=== PATIENT | female | born 1945 | race Caucasian/White ===

== ENCOUNTER 2017-10-30 08:05 | Inpatient (IN) | payer MEDICARE, BC ==
[2017-10-24 11:53] LABS: BASOPHILS % (AUTO) 0.5 % (0-1); EOSINOPHILS # (AUTO) 0.2 X10'3 (0-0.9); EOSINOPHILS % (AUTO) 2.9 % (0-6); LYMPHOCYTES # (AUTO) 2.8 X10'3 (1.1-4.8); LYMPHOCYTES % (AUTO) 38.4 % (21-51); MEAN CORPUSCULAR HGB CONC 31.9 % (33.0-36.5); MEAN CORPUSCULAR VOLUME 87.8 FL (78-98); MEAN PLATELET VOLUME 9.4 FL (7.4-10.4); MONOCYTES # (AUTO) 0.4 X10'3 (0-0.9); MONOCYTES % (AUTO) 5.6 % (2-12); NEUTROPHILS # (AUTO) 3.8 X10'3 (1.8-7.7); NEUTROPHILS % (AUTO) 52.6 % (42-75); PRE OP HEMATOCRIT 34.7 % (35.0-45.0); PRE OP HEMOGLOBIN 11.1 g/dL (12.0-16.0); PRE OP PLATELET COUNT 206 X10'3 (140-440); RED BLOOD COUNT 3.96 X10'6 (4.20-5.60); RED CELL DISTRIBUTION WIDTH 16.4 % (11.5-14.5)
[2017-10-24 11:56] LABS: CLARITY,URINE Clear (Clear); COLOR,URINE Yellow (Yellow); GLUCOSE, URINE Negative (Neg); KETONES,URINE Negative (Neg); LEUKOCYTE ESTERASE ,URINE Moderate (Neg); NITRITES, URINE Negative (Neg); OCCULT BLOOD,URINE Trace (Neg); PROTEIN,URINE Negative (Neg); UROBILINOGEN,URINE 0.2 E.U/dL (0.2-1.0)
[2017-10-24 12:01] LABS: UA COLLECTION TYPE CLN CATCH MIDSTREAM
[2017-10-24 12:03] LABS: PRE OP PROTIME 21.6 SECONDS (9.0-12.0)
[2017-10-24 12:06] LABS: PRE OP INR 2.1 INR
[2017-10-24 12:09] LABS: BACTERIA,URINE 1+ /HPF (Neg); RBC,URINE 0-2 /HPF (0-2); SQUAMOUS EPITHELIAL CELL,UR MODERATE /LPF (FEW); WBC,URINE 0-4 /HPF (0-4)
[2017-10-24 12:18] LABS: ALBUMIN 3.9 G/DL (3.4-5.0); ALBUMIN/GLOBULIN RATIO 0.9 (1.1-1.5); ALKALINE PHOSPHATASE 59 IU/L (46-116); BLOOD UREA NITROGEN 38 MG/DL (7-18); BUN/CREATININE RATIO 22.1 (6.6-38.0); CALCIUM 9.2 MG/DL (8.5-10.1); CHLORIDE 106 MMOL/L (99-107); CREATININE 1.72 MG/DL (0.40-0.90); PRE OP ALT 32 U/L (30-65); PRE OP ANION GAP 9 (8-16); PRE OP AST 25 U/L (10-37); PRE OP BILIRUB, TOTAL 0.4 MG/DL (0.0-1.0); PRE OP GLUCOSE 87 MG/DL (70-104); PRE OP POTASSIUM 4.4 MMOL/L (3.4-5.1); PRE OP SODIUM 143 MMOL/L (135-145); TOTAL PROTEIN 8.1 G/DL (6.4-8.2); eGFR 29 ML/MIN
[2017-10-30] VITALS (17 sets, daily range): BP systolic 128–183; BP diastolic 56–81
[~2017-10-30] VITALS: Ht 162.6 cm; Wt 81.8 kg
[~2017-10-30 08:05] MED LIST: ATOR40TA PO; CALC1TAB PO; COU4T PO; FURO-150 PO; LOSA25TA96 PO; MAGN250T2 PO; POTA20TA19 PO; clindamycin-Cleocin 900mg/D5W 50 ML IV ONE; famotidine 20mg tablet PO ONE; normal saline 500ml IV soln 500 ML IV SCH; ringers solution, lacted 1,000 ML IV SCH
[2017-10-30] MEDS ORDERED: LIDOcaine 1% (10mg/ml) 2ml vial ONE (08:27)
[2017-10-30] MEDS ORDERED: gentamicin inj 275 MG in normal saline 100ml IV soln 93.125 ML IV ONE (08:33)
[2017-10-30 09:11] LABS: INR 1.5 INR; PARTIAL THROMBOPLASTIN TIME 30 SECONDS (22-32)
[2017-10-30] MEDS ORDERED: gentamicin 40 MG/1 ML inj ONE (10:45)
[2017-10-30] MEDS ORDERED: ceFAZolin 1000mg inj ONE (10:45)
[2017-10-30] MEDS ORDERED: clindamycin phosphate 150mg/ml inj. ONE (10:45)
[2017-10-30] MEDS ORDERED: fentaNYL/PF 50MCG/1 ML 2ML syringe ONE (11:50)
[2017-10-30] MEDS ORDERED: midazolam 2 mg/2 ml injection ONE (11:52)
[2017-10-30] MEDS ORDERED: rocuronium 10mg/ml inj IV ONE (11:52)
[2017-10-30] MEDS ORDERED: etomidate 2mg/ml inj. ONE (11:52)
[2017-10-30] MEDS ORDERED: BUPIVAcaine/PF 2.5 mg/ml (0.25%) 30ml vial ONE (13:01)
[2017-10-30] MEDS ORDERED: hydrALAZINE 20mg/ml inj. IV PRN (13:30)
[2017-10-30] MEDS ORDERED: ringers solution, lacted 1,000 ML IV SCH (13:30)
[2017-10-30] MEDS ORDERED: labetalol 20mg/4ml (5mg/ml) syringe IV PRN (13:30)
[2017-10-30] MEDS ORDERED: fentaNYL/PF 50MCG/1 ML 2ML syringe IV PRN ×2 (13:30)
[2017-10-30] MEDS ORDERED: ondansetron/PF 4mg/2ml inj IV PRN ×2 (13:30→14:15)
[2017-10-30] MEDS ORDERED: morphine sulfate 8 MG/ML SYRINGE IV PRN ×2 (13:30)
[2017-10-30] MEDS ORDERED: HYDROmorphone 1 mg/ml syringe IV PRN (14:20)
[2017-10-30] MEDS ORDERED: acetaminophen 1,000mg/100ml IV 100 ML IV ONE (14:25)
[2017-10-30] MEDS: metroNIDAZOLE-Flagyl 500mg/NS 100 ML IV SCH ×2 (16:22→23:43)
[2017-10-30] MEDS: levoFLOXACIN-Levaquin 750MG/D5 150 ML IV SCH (17:29)
[2017-10-30] MEDS: potassium CL 20mEq in D5-1/2NS 1,000 ML IV SCH ×2 (17:30→22:15)
[2017-10-30] MEDS: ketorolac tromethamine 15mg/ml inj. IV SCH (19:28)
[2017-10-30] MEDS: morphine sulfate 8 MG/ML SYRINGE IV PRN ×2 (19:29→23:45)
[2017-10-31] VITALS (23 sets, daily range): BP systolic 87–138; BP diastolic 33–83
[2017-10-31] MEDS: ketorolac tromethamine 15mg/ml inj. IV SCH ×4 (04:43→20:00)
[2017-10-31] MEDS: potassium CL 20mEq in D5-1/2NS 1,000 ML IV SCH ×3 (04:43→22:15)
[2017-10-31] MEDS: morphine sulfate 8 MG/ML SYRINGE IV PRN ×2 (04:44→21:48)
[2017-10-31 05:08] LABS: BASOPHILS % (AUTO) 0.2 % (0-1); EOSINOPHILS % (AUTO) 0 % (0-6); HEMOGLOBIN 7.2 g/dl (12.0-16.0); LYMPHOCYTES # (AUTO) 0.8 X10'3 (1.1-4.8); LYMPHOCYTES % (AUTO) 9.7 % (21-51); MEAN CORPUSCULAR HEMOGLOBIN 28.6 PG (27.0-31.0); MEAN CORPUSCULAR HGB CONC 32.7 % (33.0-36.5); MEAN CORPUSCULAR VOLUME 87.2 FL (78-98); MEAN PLATELET VOLUME 9.6 FL (7.4-10.4); MONOCYTES # (AUTO) 0.4 X10'3 (0-0.9); MONOCYTES % (AUTO) 4.7 % (2-12); NEUTROPHILS # (AUTO) 6.7 X10'3 (1.8-7.7); NEUTROPHILS % (AUTO) 85.4 % (42-75); PLATELET COUNT 210 X10'3 (140-440); RED BLOOD COUNT 2.52 X10'6 (4.20-5.60); RED CELL DISTRIBUTION WIDTH 16.1 % (11.5-14.5); WHITE BLOOD COUNT 7.9 X10'3 (4.5-11.0)
[2017-10-31] MEDS: metroNIDAZOLE-Flagyl 500mg/NS 100 ML IV SCH ×2 (08:18→16:35)
[2017-10-31] MEDS: levoFLOXACIN-Levaquin 750MG/D5 150 ML IV SCH (10:04)
[2017-10-31] MEDS ORDERED: albumin (Human) 5% 250 ML IV solution IV STA ×4 (11:15→19:07)
[2017-10-31] MEDS ORDERED: heparin sodium, porcine/PF 100unit/ml 5ML syringe ONE (16:39)
[2017-10-31 17:01] LABS: ANION GAP 10 (8-16); BLOOD UREA NITROGEN 41 MG/DL (7-18); CALCIUM 7.9 MG/DL (8.5-10.1); CHLORIDE 109 MMOL/L (99-107); CREATININE 1.95 MG/DL (0.40-0.90); GLUCOSE 200 MG/DL (70-104); POTASSIUM 4.5 MMOL/L (3.5-5.1); SODIUM 139 MMOL/L (135-145); TOTAL CARBON DIOXIDE 20.2 MMOL/L (24-32); eGFR 25 ML/MIN
[2017-10-31] MEDS: lactobacillus rhamnosus 10,000 MMU CELLS/CAPSULE PO SCH (17:30)
[2017-10-31 19:47] LABS: MEAN CORPUSCULAR HEMOGLOBIN 27.9 PG (27.0-31.0); MEAN CORPUSCULAR HGB CONC 33.3 % (33.0-36.5); MEAN CORPUSCULAR VOLUME 83.8 FL (78-98); MEAN PLATELET VOLUME 9.5 FL (7.4-10.4); PLATELET COUNT 151 X10'3 (140-440); RED BLOOD COUNT 2.33 X10'6 (4.20-5.60); WHITE BLOOD COUNT 11.8 X10'3 (4.5-11.0)
[2017-10-31 19:53] LABS: HEMATOCRIT 19.5 % (35.0-45.0); HEMOGLOBIN 6.5 g/dl (12.0-16.0)
[2017-10-31 19:58] LABS: INR 2.4 INR; PROTHROMBIN TIME 24.1 SECONDS (9.0-12.0)
[2017-10-31] MEDS ORDERED: LIDOcaine 1%/PF (10mg/ml) 5ml vial ONE (21:02)
[2017-10-31] MEDS ORDERED: iohexol 300mg/ml 100ml inj. ONE (21:02)
[2017-10-31] MEDS ORDERED: heparin 1,000 UNITS/NS 500ml 500 ML ONE (21:10)
[2017-10-31] MEDS ORDERED: normal saline 500ml IV soln 500 ML IV ONE (21:10)
[2017-10-31] MEDS ORDERED: LIDOcaine 1%/PF (10mg/ml) 5ml vial SQ ONE (21:15)
[2017-10-31] MEDS ORDERED: fentaNYL/PF 50MCG/1 ML 2ML syringe IV PRN (21:15)
[2017-10-31] MEDS ORDERED: midazolam 2 mg/2 ml injection IV PRN (21:15)
[2017-10-31] MEDS ORDERED: heparin 1,000 UNITS/NS 500ml 500 ML ICATH ONE (21:15)
[2017-11-01] VITALS (59 sets, daily range): BP systolic 11–174; BP diastolic 40–108
[2017-11-01] MEDS: metroNIDAZOLE-Flagyl 500mg/NS 100 ML IV SCH ×3 (00:55→16:00)
[2017-11-01] MEDS: ketorolac tromethamine 15mg/ml inj. IV SCH ×2 (01:27→08:00)
[2017-11-01 04:33] LABS: INR 1.6 INR; PROTHROMBIN TIME 16.5 SECONDS (9.0-12.0)
[2017-11-01 04:37] LABS: ALANINE AMINOTRANSFERASE 21 U/L (12-78); ALBUMIN 2.7 G/DL (3.4-5.0); ALBUMIN/GLOBULIN RATIO 1.3 (1.1-1.5); ALKALINE PHOSPHATASE 34 IU/L (46-116); ANION GAP 9 (8-16); ASPARTATE AMINO TRANSFERASE 29 U/L (10-37); BLOOD UREA NITROGEN 35 MG/DL (7-18); BUN/CREATININE RATIO 18.7 (6.6-38.0); CALCIUM 7.7 MG/DL (8.5-10.1); CHLORIDE 110 MMOL/L (99-107); CREATININE 1.87 MG/DL (0.40-0.90); GLUCOSE 157 MG/DL (70-104); MAGNESIUM 1.6 MG/DL (1.5-2.4); POTASSIUM 3.9 MMOL/L (3.5-5.1); SODIUM 141 MMOL/L (135-145); TOTAL PROTEIN 4.8 G/DL (6.4-8.2); eGFR 26 ML/MIN
[2017-11-01 05:07] LABS: BASOPHILS % (AUTO) 0.2 % (0-1); EOSINOPHILS # (AUTO) 0.1 X10'3 (0-0.9); EOSINOPHILS % (AUTO) 1.1 % (0-6); LYMPHOCYTES # (AUTO) 2.2 X10'3 (1.1-4.8); LYMPHOCYTES % (AUTO) 19.8 % (21-51); MEAN CORPUSCULAR HEMOGLOBIN 29.1 PG (27.0-31.0); MEAN CORPUSCULAR VOLUME 85.5 FL (78-98); MEAN PLATELET VOLUME 9.8 FL (7.4-10.4); MONOCYTES # (AUTO) 0.7 X10'3 (0-0.9); MONOCYTES % (AUTO) 6.4 % (2-12); NEUTROPHILS % (AUTO) 72.5 % (42-75); PLATELET COUNT 99 X10'3 (140-440); RED CELL DISTRIBUTION WIDTH 16.2 % (11.5-14.5)
[2017-11-01 05:11] LABS: HEMOGLOBIN 6.1 g/dl (12.0-16.0)
[2017-11-01] MEDS: potassium CL 20mEq in D5-1/2NS 1,000 ML IV SCH ×2 (06:15→22:26)
[2017-11-01] MEDS: lactobacillus rhamnosus 10,000 MMU CELLS/CAPSULE PO SCH ×2 (07:30→17:30)
[2017-11-01 08:48] LABS: HEMOGLOBIN 7.3 g/dl (12.0-16.0); MEAN CORPUSCULAR HEMOGLOBIN 29.2 PG (27.0-31.0); MEAN CORPUSCULAR HGB CONC 33.4 % (33.0-36.5); MEAN CORPUSCULAR VOLUME 87.2 FL (78-98); MEAN PLATELET VOLUME 10.3 FL (7.4-10.4); PLATELET COUNT 87 X10'3 (140-440); RED BLOOD COUNT 2.49 X10'6 (4.20-5.60); RED CELL DISTRIBUTION WIDTH 15.3 % (11.5-14.5); WHITE BLOOD COUNT 9.8 X10'3 (4.5-11.0)
[2017-11-01 09:04] LABS: HEMATOCRIT 21.7 % (35.0-45.0)
[2017-11-01] MEDS ORDERED: CALCIUM GLUCONATE 1 GM in NORMAL SALINE 100ml IV.SOLN IV ONE (11:30)
[2017-11-01] MEDS ORDERED: vasopressin inj. 60 UNIT in normal saline 100ml IV soln 97 ML IV SCH (11:50)
[2017-11-01] MEDS: levoFLOXACIN-Levaquin 750MG/D5 150 ML IV SCH (11:58)
[2017-11-01] MEDS ORDERED: furosemide 20 MG/2 ML vial IV ONE (13:15)
[2017-11-01 13:34] LABS: MEAN CORPUSCULAR HEMOGLOBIN 29.8 PG (27.0-31.0); MEAN CORPUSCULAR VOLUME 87.5 FL (78-98); MEAN PLATELET VOLUME 9.9 FL (7.4-10.4); PLATELET COUNT 69 X10'3 (140-440); RED BLOOD COUNT 1.89 X10'6 (4.20-5.60); RED CELL DISTRIBUTION WIDTH 15.5 % (11.5-14.5); WHITE BLOOD COUNT 7.7 X10'3 (4.5-11.0)
[2017-11-01 13:46] LABS: HEMATOCRIT 16.6 % (35.0-45.0); HEMOGLOBIN 5.6 g/dl (12.0-16.0)
[2017-11-01] MEDS ORDERED: normal saline 1000ml 1,000 ML IV SCH (14:15)
[2017-11-01] MEDS ORDERED: fentaNYL/PF 50MCG/1 ML 2ML syringe IV PRN ×2 (14:15→14:30)
[2017-11-01] MEDS ORDERED: midazolam 2 mg/2 ml injection IV PRN ×2 (14:15→14:30)
[2017-11-01] MEDS ORDERED: iohexol 300mg/ml 100ml inj. ONE (14:24)
[2017-11-01] MEDS ORDERED: LIDOcaine 1%/PF (10mg/ml) 5ml vial ONE (14:24)
[2017-11-01] MEDS ORDERED: LIDOcaine 1%/PF (10mg/ml) 5ml vial SQ ONE (14:30)
[2017-11-01] MEDS ORDERED: fentaNYL/PF 50MCG/1 ML 2ML syringe ONE ×2 (15:09→17:30)
[2017-11-01] MEDS ORDERED: midazolam 2 mg/2 ml injection ONE ×2 (15:09→17:30)
[2017-11-01] MEDS ORDERED: glucagon, human recombinant 1mg kit ONE (15:33)
[2017-11-01] MEDS ORDERED: glucagon, human recombinant 1mg kit IV ONE (15:35)
[2017-11-01] MEDS ORDERED: gentamicin 40 MG/1 ML inj ONE (17:13)
[2017-11-01] MEDS ORDERED: clindamycin phosphate 150mg/ml inj. ONE (17:14)
[2017-11-01 17:46] LABS: HEMATOCRIT 23.3 % (35.0-45.0); HEMOGLOBIN 7.9 g/dl (12.0-16.0); MEAN CORPUSCULAR HEMOGLOBIN 29.6 PG (27.0-31.0); MEAN CORPUSCULAR HGB CONC 33.6 % (33.0-36.5); PLATELET COUNT 63 X10'3 (140-440); RED BLOOD COUNT 2.65 X10'6 (4.20-5.60); RED CELL DISTRIBUTION WIDTH 15.2 % (11.5-14.5); WHITE BLOOD COUNT 12.5 X10'3 (4.5-11.0)
[2017-11-01 17:55] LABS: ANION GAP 6 (8-16); BLOOD UREA NITROGEN 29 MG/DL (7-18); BUN/CREATININE RATIO 20.7 (6.6-38.0); CALCIUM 6.9 MG/DL (8.5-10.1); CHLORIDE 115 MMOL/L (99-107); GLUCOSE 157 MG/DL (70-104); POTASSIUM 3.6 MMOL/L (3.5-5.1); SODIUM 142 MMOL/L (135-145); eGFR 37 ML/MIN
[2017-11-01] MEDS: NORepinephrine 8 MG in normal saline 250ml IV soln IV SCH (18:05)
[2017-11-01 18:10] LABS: INR 1.7 INR; PROTHROMBIN TIME 17.6 SECONDS (9.0-12.0)
[2017-11-01 19:51] LABS: ISTAT CREATININE 1.1 mg/dL (0.6-1.1); ISTAT HGB 7.8 g/dl (12.0-16.0); ISTAT IONIZED CALCIUM 1.05 mmol/L (1.03-1.32); ISTAT K 3.8 mmol/L (3.5-5.1); POC BUN/CREATININE RATIO 21.8 (6.6-38.0)
[2017-11-01 20:10] LABS: ABG BASE EXCESS -8.4 mmol/L (-2.0-3.0); ABG HCO3 16.3 mmol/L (22.0-26.0); ABG OXYGEN SATURATION 98.9 % (95-98); ABG PCO2 (T) 28.9 mmHg (32.0-45.0); ABG PH (T) 7.361 (7.350-7.450); ABG PO2 (T) 464.4 mmHg (83-108); FCOHb 0.3 % (0.5-1.5); FMetHb 0.2 % (0.3-1.12); FO2Hb 98.4 % (94-100); PATIENT TEMPERATURE 35.5; TOTAL HEMOGLOBIN 10.8 G/dl (12.0-16.0)
[2017-11-01] MEDS ORDERED: sodium bicarbonate 1 MEQ/1 ml inj ONE ×2 (20:10)
[2017-11-01] MEDS ORDERED: FENTANYL-0.9 % NACL/PF 100 ML IV PRN (20:35)
[2017-11-01] MEDS ORDERED: midazolam 100mg in NS 100ml 100 ML IV PRN (20:35)
[2017-11-01] MEDS ORDERED: MIDAZolam 5mg/5ml vial ONE (20:38)
[2017-11-01] MEDS ORDERED: rocuronium 10mg/ml inj IV ONE (20:38)
[2017-11-01] MEDS: atorvastatin 20mg tablet PO SCH (20:51)
[2017-11-01 22:06] LABS: ABG BASE EXCESS -5.8 mmol/L (-2.0-3.0); ABG OXYGEN SATURATION 98.8 % (95-98); ABG PH (T) 7.362 (7.350-7.450); ABG PO2 (T) 223.2 mmHg (83-108); FCOHb 0.2 % (0.5-1.5); FMetHb 0.2 % (0.3-1.12); FO2Hb 98.4 % (94-100); MINUTE VOLUME 7 L/min; PATIENT TEMPERATURE 36.3; PEEP 5 cm H2O; RESPIRATORY RATE 12 b/min; RESPIRATORY RATE (OBSERVED) 12 b/min; TIDAL VOLUME 550 mL; TOTAL HEMOGLOBIN 12.4 G/dl (12.0-16.0)
[2017-11-01] MEDS ORDERED: glucagon, human recombinant 1mg kit SUBCUT PRN (22:10)
[2017-11-01] MEDS ORDERED: dextrose ORAL solution 15 GM/59 ML bottle PO PRN ×2 (22:10)
[2017-11-01] MEDS ORDERED: dextrose 50%-water 50ml dispensing syringe IV PRN ×2 (22:10)
[2017-11-01 22:18] LABS: BASOPHILS % (AUTO) 0 % (0-1); EOSINOPHILS % (AUTO) 0.1 % (0-6); HEMOGLOBIN 11.4 g/dl (12.0-16.0); LYMPHOCYTES # (AUTO) 0.6 X10'3 (1.1-4.8); LYMPHOCYTES % (AUTO) 6.5 % (21-51); MEAN CORPUSCULAR HEMOGLOBIN 29.7 PG (27.0-31.0); MEAN CORPUSCULAR HGB CONC 33.5 % (33.0-36.5); MEAN CORPUSCULAR VOLUME 88.7 FL (78-98); MEAN PLATELET VOLUME 9.9 FL (7.4-10.4); MONOCYTES # (AUTO) 0.3 X10'3 (0-0.9); MONOCYTES % (AUTO) 3.1 % (2-12); NEUTROPHILS # (AUTO) 8.8 X10'3 (1.8-7.7); NEUTROPHILS % (AUTO) 90.3 % (42-75); RED BLOOD COUNT 3.83 X10'6 (4.20-5.60); RED CELL DISTRIBUTION WIDTH 13.9 % (11.5-14.5); WHITE BLOOD COUNT 9.7 X10'3 (4.5-11.0)
[2017-11-01 22:26] LABS: PLATELET COUNT 41 X10'3 (140-440)
[2017-11-01 22:29] LABS: INR 1.4 INR; PARTIAL THROMBOPLASTIN TIME 33 SECONDS (22-32); PROTHROMBIN TIME 14.5 SECONDS (9.0-12.0)
[2017-11-01 22:31] LABS: ALANINE AMINOTRANSFERASE 20 U/L (12-78); ALBUMIN 2.1 G/DL (3.4-5.0); ALKALINE PHOSPHATASE 38 IU/L (46-116); ANION GAP 10 (8-16); ASPARTATE AMINO TRANSFERASE 30 U/L (10-37); BILIRUBIN,TOTAL 1.5 MG/DL (0.1-1.0); BLOOD UREA NITROGEN 26 MG/DL (7-18); BUN/CREATININE RATIO 19.7 (6.6-38.0); CALCIUM 6.7 MG/DL (8.5-10.1); CHLORIDE 113 MMOL/L (99-107); CREATININE 1.32 MG/DL (0.40-0.90); GLUCOSE 251 MG/DL (70-104); MAGNESIUM 1.2 MG/DL (1.5-2.4); PHOSPHORUS 3.3 MG/DL (2.3-4.5); POTASSIUM 3.5 MMOL/L (3.5-5.1); SODIUM 144 MMOL/L (135-145); TOTAL PROTEIN 4.2 G/DL (6.4-8.2); eGFR 40 ML/MIN
[2017-11-01] MEDS: insulin Lispro (HumaLOG) vial - multi-dose SQ SCH (23:06)
[2017-11-01] MEDS ORDERED: magnesium 4gm in 100ml NS 100 ML IV PRN (23:20)
[2017-11-01] MEDS ORDERED: magnesium 2GM in 50ml NS 50 ML IV PRN (23:20)
[2017-11-01] MEDS ORDERED: potassium Cl 40MEQ/250ML bag 250 ML IV PRN ×2 (23:20)
[2017-11-01] MEDS ORDERED: potassium Cl 40MEQ/250ML bag 250 ML IV ONE (23:23)
[2017-11-02] VITALS (28 sets, daily range): BP systolic 111–155; BP diastolic 46–71
[2017-11-02] MEDS: potassium CL 20mEq in D5-1/2NS 1,000 ML IV SCH (00:52)
[2017-11-02] MEDS: metroNIDAZOLE-Flagyl 500mg/NS 100 ML IV SCH ×3 (01:06→16:37)
[2017-11-02] MEDS: insulin Lispro (HumaLOG) vial - multi-dose SQ SCH (03:07)
[2017-11-02 03:45] LABS: BASOPHILS % (AUTO) 0 % (0-1); EOSINOPHILS % (AUTO) 0 % (0-6); HEMATOCRIT 32.5 % (35.0-45.0); HEMOGLOBIN 11.4 g/dl (12.0-16.0); LYMPHOCYTES # (AUTO) 0.5 X10'3 (1.1-4.8); LYMPHOCYTES % (AUTO) 4.6 % (21-51); MEAN CORPUSCULAR HEMOGLOBIN 30.4 PG (27.0-31.0); MEAN CORPUSCULAR HGB CONC 35.1 % (33.0-36.5); MEAN CORPUSCULAR VOLUME 86.6 FL (78-98); MEAN PLATELET VOLUME 9.6 FL (7.4-10.4); MONOCYTES # (AUTO) 0.2 X10'3 (0-0.9); MONOCYTES % (AUTO) 2.3 % (2-12); NEUTROPHILS # (AUTO) 9.3 X10'3 (1.8-7.7); NEUTROPHILS % (AUTO) 93.1 % (42-75); PLATELET COUNT 69 X10'3 (140-440); RED BLOOD COUNT 3.76 X10'6 (4.20-5.60); RED CELL DISTRIBUTION WIDTH 13.2 % (11.5-14.5)
[2017-11-02 03:48] LABS: INR 1.3 INR; PROTHROMBIN TIME 13.6 SECONDS (9.0-12.0)
[2017-11-02 04:06] LABS: ALANINE AMINOTRANSFERASE 23 U/L (12-78); ALBUMIN 2.3 G/DL (3.4-5.0); ALKALINE PHOSPHATASE 39 IU/L (46-116); ANION GAP 6 (8-16); ASPARTATE AMINO TRANSFERASE 31 U/L (10-37); BILIRUBIN,TOTAL 1.3 MG/DL (0.1-1.0); BLOOD UREA NITROGEN 27 MG/DL (7-18); BUN/CREATININE RATIO 18.1 (6.6-38.0); CALCIUM 7.3 MG/DL (8.5-10.1); CHLORIDE 113 MMOL/L (99-107); CREATININE 1.49 MG/DL (0.40-0.90); GLUCOSE 231 MG/DL (70-104); PHOSPHORUS 2.8 MG/DL (2.3-4.5); POTASSIUM 3.6 MMOL/L (3.5-5.1); SODIUM 143 MMOL/L (135-145); TOTAL CARBON DIOXIDE 24.3 MMOL/L (24-32); TOTAL PROTEIN 4.6 G/DL (6.4-8.2); eGFR 34 ML/MIN
[2017-11-02 04:31] LABS: ABG HCO3 18.4 mmol/L (22.0-26.0); ABG OXYGEN SATURATION 97.8 % (95-98); ABG PCO2 (T) 29.1 mmHg (32.0-45.0); ABG PH (T) 7.419 (7.350-7.450); ABG PO2 (T) 117.2 mmHg (83-108); FCOHb 0.2 % (0.5-1.5); FMetHb 0.1 % (0.3-1.12); FO2Hb 97.5 % (94-100); MINUTE VOLUME 7 L/min; PEEP 5 cm H2O; RESPIRATORY RATE 12 b/min; RESPIRATORY RATE (OBSERVED) 12 b/min; TIDAL VOLUME 550 mL; TOTAL HEMOGLOBIN 11.7 G/dl (12.0-16.0)
[2017-11-02] MEDS: lactobacillus rhamnosus 10,000 MMU CELLS/CAPSULE PO SCH ×2 (07:30→17:30)
[2017-11-02] MEDS: calcium carbonate/vitamin D3 tablet PO SCH (08:00)
[2017-11-02] MEDS: levoFLOXACIN-Levaquin 750MG/D5 150 ML IV SCH (08:57)
[2017-11-02 09:25] LABS: BASOPHILS % (AUTO) 0.4 % (0-1); EOSINOPHILS % (AUTO) 0 % (0-6); HEMATOCRIT 31.4 % (35.0-45.0); HEMOGLOBIN 11.1 g/dl (12.0-16.0); LYMPHOCYTES # (AUTO) 0.7 X10'3 (1.1-4.8); MEAN CORPUSCULAR HEMOGLOBIN 30.3 PG (27.0-31.0); MEAN CORPUSCULAR HGB CONC 35.4 % (33.0-36.5); MEAN CORPUSCULAR VOLUME 85.5 FL (78-98); MEAN PLATELET VOLUME 9.2 FL (7.4-10.4); MONOCYTES # (AUTO) 0.4 X10'3 (0-0.9); MONOCYTES % (AUTO) 4.6 % (2-12); NEUTROPHILS # (AUTO) 8.5 X10'3 (1.8-7.7); PLATELET COUNT 80 X10'3 (140-440); RED BLOOD COUNT 3.68 X10'6 (4.20-5.60); RED CELL DISTRIBUTION WIDTH 13.3 % (11.5-14.5); WHITE BLOOD COUNT 9.6 X10'3 (4.5-11.0)
[2017-11-02 09:36] LABS: INR 1.4 INR; PARTIAL THROMBOPLASTIN TIME 29 SECONDS (22-32)
[2017-11-02 15:19] LABS: HEMATOCRIT 31.6 % (35.0-45.0); HEMOGLOBIN 11.3 g/dl (12.0-16.0); MEAN CORPUSCULAR HEMOGLOBIN 30.9 PG (27.0-31.0); MEAN CORPUSCULAR HGB CONC 35.7 % (33.0-36.5); MEAN CORPUSCULAR VOLUME 86.7 FL (78-98); MEAN PLATELET VOLUME 9.3 FL (7.4-10.4); PLATELET COUNT 81 X10'3 (140-440); RED BLOOD COUNT 3.65 X10'6 (4.20-5.60); RED CELL DISTRIBUTION WIDTH 13.8 % (11.5-14.5); WHITE BLOOD COUNT 11.6 X10'3 (4.5-11.0)
[2017-11-02] MEDS: potassium cl 20mEq in 1/2 NS 1,000 ML IV SCH (16:34)
[2017-11-02] MEDS: insulin glargine (Lantus) pen - multi-dose SQ SCH (20:54)
[2017-11-02] MEDS: atorvastatin 20mg tablet PO SCH (20:54)
[2017-11-03] VITALS (25 sets, daily range): BP systolic 106–153; BP diastolic 40–93
[2017-11-03] MEDS: metroNIDAZOLE-Flagyl 500mg/NS 100 ML IV SCH ×4 (00:59→23:48)
[2017-11-03 02:32] LABS: BASOPHILS % (AUTO) 0.2 % (0-1); EOSINOPHILS % (AUTO) 0.1 % (0-6); HEMATOCRIT 28.3 % (35.0-45.0); HEMOGLOBIN 9.7 g/dl (12.0-16.0); LYMPHOCYTES # (AUTO) 1.5 X10'3 (1.1-4.8); LYMPHOCYTES % (AUTO) 13.8 % (21-51); MEAN CORPUSCULAR HEMOGLOBIN 30.1 PG (27.0-31.0); MEAN CORPUSCULAR HGB CONC 34.3 % (33.0-36.5); MEAN CORPUSCULAR VOLUME 87.8 FL (78-98); MEAN PLATELET VOLUME 10.2 FL (7.4-10.4); MONOCYTES # (AUTO) 0.7 X10'3 (0-0.9); MONOCYTES % (AUTO) 6.4 % (2-12); NEUTROPHILS # (AUTO) 8.6 X10'3 (1.8-7.7); NEUTROPHILS % (AUTO) 79.5 % (42-75); PLATELET COUNT 90 X10'3 (140-440); RED BLOOD COUNT 3.23 X10'6 (4.20-5.60); WHITE BLOOD COUNT 10.8 X10'3 (4.5-11.0)
[2017-11-03 02:39] LABS: INR 1.5 INR; PROTHROMBIN TIME 15.2 SECONDS (9.0-12.0)
[2017-11-03 02:44] LABS: ALANINE AMINOTRANSFERASE 23 U/L (12-78); ALBUMIN 2.2 G/DL (3.4-5.0); ALKALINE PHOSPHATASE 36 IU/L (46-116); ANION GAP 4 (8-16); ASPARTATE AMINO TRANSFERASE 26 U/L (10-37); BILIRUBIN,TOTAL 0.6 MG/DL (0.1-1.0); BLOOD UREA NITROGEN 32 MG/DL (7-18); BUN/CREATININE RATIO 19.9 (6.6-38.0); CALCIUM 7.5 MG/DL (8.5-10.1); CHLORIDE 115 MMOL/L (99-107); CREATININE 1.61 MG/DL (0.40-0.90); GLUCOSE 138 MG/DL (70-104); MAGNESIUM 1.8 MG/DL (1.5-2.4); POTASSIUM 3.7 MMOL/L (3.5-5.1); SODIUM 145 MMOL/L (135-145); TOTAL CARBON DIOXIDE 26.4 MMOL/L (24-32); TOTAL PROTEIN 4.4 G/DL (6.4-8.2); eGFR 31 ML/MIN
[2017-11-03] MEDS: calcium carbonate/vitamin D3 tablet PO SCH (08:34)
[2017-11-03] MEDS: lactobacillus rhamnosus 10,000 MMU CELLS/CAPSULE PO SCH ×2 (08:34→17:23)
[2017-11-03] MEDS: potassium cl 20mEq in 1/2 NS 1,000 ML IV SCH (08:37)
[2017-11-03] MEDS: levoFLOXACIN-Levaquin 750MG/D5 150 ML IV SCH (08:37)
[2017-11-03 08:47] LABS: HEMATOCRIT 28.2 % (35.0-45.0); HEMOGLOBIN 9.5 g/dl (12.0-16.0); MEAN CORPUSCULAR HGB CONC 33.7 % (33.0-36.5); MEAN CORPUSCULAR VOLUME 88.8 FL (78-98); PLATELET COUNT 92 X10'3 (140-440); RED BLOOD COUNT 3.17 X10'6 (4.20-5.60)
[2017-11-03] MEDS: morphine sulfate 8 MG/ML SYRINGE IV PRN (13:31)
[2017-11-03 14:10] LABS: HEMATOCRIT 27.6 % (35.0-45.0); HEMOGLOBIN 9.3 g/dl (12.0-16.0); MEAN CORPUSCULAR HEMOGLOBIN 30.1 PG (27.0-31.0); MEAN CORPUSCULAR HGB CONC 33.7 % (33.0-36.5); MEAN CORPUSCULAR VOLUME 89.4 FL (78-98); MEAN PLATELET VOLUME 9.8 FL (7.4-10.4); PLATELET COUNT 89 X10'3 (140-440); RED BLOOD COUNT 3.08 X10'6 (4.20-5.60); RED CELL DISTRIBUTION WIDTH 15.1 % (11.5-14.5); WHITE BLOOD COUNT 10.7 X10'3 (4.5-11.0)
[2017-11-03] MEDS: HYDROcodone/acetaminophen 10/325mg tab PO PRN ×2 (15:26→20:30)
[2017-11-03] MEDS: NORepinephrine 8 MG in normal saline 250ml IV soln IV SCH (17:55)
[2017-11-03] MEDS: atorvastatin 20mg tablet PO SCH (20:31)
[2017-11-03] MEDS: insulin glargine (Lantus) pen - multi-dose SQ SCH (21:00)
[2017-11-04] VITALS (13 sets, daily range): BP systolic 126–164; BP diastolic 56–81
[2017-11-04 07:45] LABS: BASOPHILS # (AUTO) 0.1 X10'3 (0-0.2); BASOPHILS % (AUTO) 0.6 % (0-1); EOSINOPHILS # (AUTO) 0.3 X10'3 (0-0.9); EOSINOPHILS % (AUTO) 3.4 % (0-6); HEMATOCRIT 27.9 % (35.0-45.0); HEMOGLOBIN 9.4 g/dl (12.0-16.0); LYMPHOCYTES # (AUTO) 1.6 X10'3 (1.1-4.8); LYMPHOCYTES % (AUTO) 17.1 % (21-51); MEAN CORPUSCULAR HEMOGLOBIN 30.2 PG (27.0-31.0); MEAN CORPUSCULAR HGB CONC 33.8 % (33.0-36.5); MEAN CORPUSCULAR VOLUME 89.3 FL (78-98); MEAN PLATELET VOLUME 9.7 FL (7.4-10.4); MONOCYTES # (AUTO) 0.6 X10'3 (0-0.9); MONOCYTES % (AUTO) 6.7 % (2-12); NEUTROPHILS # (AUTO) 6.8 X10'3 (1.8-7.7); NEUTROPHILS % (AUTO) 72.2 % (42-75); PLATELET COUNT 92 X10'3 (140-440); RED BLOOD COUNT 3.13 X10'6 (4.20-5.60); RED CELL DISTRIBUTION WIDTH 14.8 % (11.5-14.5); WHITE BLOOD COUNT 9.4 X10'3 (4.5-11.0)
[2017-11-04 07:58] LABS: INR 1.2 INR; PROTHROMBIN TIME 12.8 SECONDS (9.0-12.0)
[2017-11-04] MEDS: metroNIDAZOLE-Flagyl 500mg/NS 100 ML IV SCH ×3 (08:14→23:52)
[2017-11-04] MEDS: magnesium hydroxide 30ml (MOM) UD suspension PO SCH ×2 (08:14→20:17)
[2017-11-04] MEDS: calcium carbonate/vitamin D3 tablet PO SCH (08:14)
[2017-11-04] MEDS: lactobacillus rhamnosus 10,000 MMU CELLS/CAPSULE PO SCH ×2 (08:14→16:48)
[2017-11-04 08:33] LABS: ALANINE AMINOTRANSFERASE 22 U/L (12-78); ALBUMIN 2.3 G/DL (3.4-5.0); ALBUMIN/GLOBULIN RATIO 0.9 (1.1-1.5); ALKALINE PHOSPHATASE 38 IU/L (46-116); ANION GAP 7 (8-16); ASPARTATE AMINO TRANSFERASE 22 U/L (10-37); BILIRUBIN,TOTAL 0.7 MG/DL (0.1-1.0); BLOOD UREA NITROGEN 26 MG/DL (7-18); BUN/CREATININE RATIO 18.6 (6.6-38.0); CALCIUM 7.9 MG/DL (8.5-10.1); CHLORIDE 110 MMOL/L (99-107); GLUCOSE 100 MG/DL (70-104); MAGNESIUM 1.7 MG/DL (1.5-2.4); PHOSPHORUS 2.2 MG/DL (2.3-4.5); POTASSIUM 3.7 MMOL/L (3.5-5.1); SODIUM 141 MMOL/L (135-145); TOTAL CARBON DIOXIDE 24.1 MMOL/L (24-32); TOTAL PROTEIN 4.9 G/DL (6.4-8.2); eGFR 37 ML/MIN
[2017-11-04] MEDS: levoFLOXACIN-Levaquin 750MG/D5 150 ML IV SCH (09:08)
[2017-11-04] MEDS: atorvastatin 20mg tablet PO SCH (20:58)
[2017-11-04] MEDS: insulin glargine (Lantus) pen - multi-dose SQ SCH (20:58)
[2017-11-05] VITALS: BP 131/62
[2017-11-05 08:00] VITALS: BP 119/60
[2017-11-05] MEDS: magnesium hydroxide 30ml (MOM) UD suspension PO SCH ×2 (08:01→16:06)
[2017-11-05] MEDS: lactobacillus rhamnosus 10,000 MMU CELLS/CAPSULE PO SCH ×2 (08:01→17:46)
[2017-11-05] MEDS: metroNIDAZOLE-Flagyl 500mg/NS 100 ML IV SCH ×2 (08:01→16:08)
[2017-11-05] MEDS: calcium carbonate/vitamin D3 tablet PO SCH (08:01)
[2017-11-05] MEDS: levoFLOXACIN-Levaquin 750MG/D5 150 ML IV SCH (10:08)
[2017-11-05 11:00] VITALS: BP 190/81
[2017-11-05 13:09] VITALS: BP 125/65
[2017-11-05] MEDS ORDERED: acetaminophen 325mg tablet PO PRN (17:35)
[2017-11-05 20:05] VITALS: BP 128/73
[2017-11-05] MEDS: insulin glargine (Lantus) pen - multi-dose SQ SCH (21:00)
[2017-11-05] MEDS: atorvastatin 20mg tablet PO SCH (21:30)
[2017-11-06 00:05] VITALS: BP 127/56
[2017-11-06] MEDS: metroNIDAZOLE 500mg tablet PO SCH ×3 (00:06→16:43)
[2017-11-06 07:00] VITALS: BP 141/84
[2017-11-06] MEDS: lactobacillus rhamnosus 10,000 MMU CELLS/CAPSULE PO SCH ×2 (07:30→16:43)
[2017-11-06 07:43] LABS: BASOPHILS % (AUTO) 0.3 % (0-1); EOSINOPHILS # (AUTO) 0.3 X10'3 (0-0.9); EOSINOPHILS % (AUTO) 3.7 % (0-6); HEMATOCRIT 29.5 % (35.0-45.0); HEMOGLOBIN 9.8 g/dl (12.0-16.0); LYMPHOCYTES # (AUTO) 1.7 X10'3 (1.1-4.8); LYMPHOCYTES % (AUTO) 19.9 % (21-51); MEAN CORPUSCULAR HEMOGLOBIN 29.7 PG (27.0-31.0); MEAN CORPUSCULAR HGB CONC 33.2 % (33.0-36.5); MEAN CORPUSCULAR VOLUME 89.4 FL (78-98); MEAN PLATELET VOLUME 10.2 FL (7.4-10.4); MONOCYTES # (AUTO) 0.7 X10'3 (0-0.9); MONOCYTES % (AUTO) 8.1 % (2-12); NEUTROPHILS # (AUTO) 5.9 X10'3 (1.8-7.7); PLATELET COUNT 145 X10'3 (140-440); RED CELL DISTRIBUTION WIDTH 14.9 % (11.5-14.5); WHITE BLOOD COUNT 8.7 X10'3 (4.5-11.0)
[2017-11-06] MEDS: magnesium hydroxide 30ml (MOM) UD suspension PO SCH ×3 (08:00→18:10)
[2017-11-06] MEDS: methylnaltrexone br 12mg/0.6ml inj***SubQ only SQ SCH (09:11)
[2017-11-06] MEDS: calcium carbonate/vitamin D3 tablet PO SCH (09:11)
[2017-11-06 11:00] VITALS: BP 112/66
[2017-11-06] MEDS: levoFLOXACIN 750MG TABLET PO SCH (11:00)
[2017-11-06] MEDS ORDERED: furosemide 20MG tablet PO ONE (14:55)
[2017-11-06 20:00] VITALS: BP 138/73
[2017-11-06] MEDS: potassium Cl 20 mEq SR tablet PO SCH ×2 (21:00→21:37)
[2017-11-06] MEDS: insulin glargine (Lantus) pen - multi-dose SQ SCH (21:00)
[2017-11-06] MEDS: atorvastatin 20mg tablet PO SCH (21:38)
[2017-11-07] VITALS: BP 120/68
[2017-11-07] MEDS: metroNIDAZOLE 500mg tablet PO SCH ×3 (00:02→16:13)
[2017-11-07 06:50] VITALS: BP 131/93
[2017-11-07] MEDS: lactobacillus rhamnosus 10,000 MMU CELLS/CAPSULE PO SCH ×2 (08:15→17:30)
[2017-11-07] MEDS: calcium carbonate/vitamin D3 tablet PO SCH (08:15)
[2017-11-07] MEDS: furosemide 20MG tablet PO SCH (08:17)
[2017-11-07] MEDS: levoFLOXACIN 750MG TABLET PO SCH (11:19)
[2017-11-07 11:20] VITALS: BP 143/62
[2017-11-07 20:00] VITALS: BP 135/66
[2017-11-07] MEDS: potassium Cl 20 mEq SR tablet PO SCH (20:49)
[2017-11-07] MEDS: atorvastatin 20mg tablet PO SCH (20:49)
[2017-11-07] MEDS: magnesium hydroxide 30ml (MOM) UD suspension PO SCH (20:49)
[2017-11-07] MEDS: insulin glargine (Lantus) pen - multi-dose SQ SCH (21:00)
[2017-11-07] MEDS ORDERED: LACT1CAP26 PO (21:53)
[2017-11-08] VITALS: BP 133/65
[2017-11-08] MEDS: metroNIDAZOLE 500mg tablet PO SCH ×2 (00:50→08:49)
[2017-11-08 06:50] VITALS: BP 130/69
[2017-11-08] MEDS: methylnaltrexone br 12mg/0.6ml inj***SubQ only SQ SCH (08:00)
[2017-11-08] MEDS: lactobacillus rhamnosus 10,000 MMU CELLS/CAPSULE PO SCH (08:49)
[2017-11-08] MEDS: furosemide 20MG tablet PO SCH (08:49)
[2017-11-08] MEDS: calcium carbonate/vitamin D3 tablet PO SCH (08:49)
[2017-11-08] MEDS: magnesium hydroxide 30ml (MOM) UD suspension PO SCH (08:49)
[2017-11-08 11:05] VITALS: BP 124/55
== END 2017-11-08 13:05 | disposition home health service (06) | DRG 330 ==
LOC: PAS IN 08:05 → EDSTATUS 10:15 → SUR 3N 15:19 → CICU 2S 10-31 20:35 → SUR 3N 11-04 12:45
PROVIDERS: ADMIT Surgery; ATTEND Internal Medicine Critical Care Medicine
PROC: 03HY32Z Insertion of Monitoring Device into Upper Artery, Percutaneous Approach (ICD-10-PCS; 2017-10-30)
PROC: 02HV33Z Insertion of Infusion Device into Superior Vena Cava, Percutaneous Approach (ICD-10-PCS; 2017-10-30)
PROC: 0DBF0ZZ Excision of Right Large Intestine, Open Approach (ICD-10-PCS; principal; 2017-10-30 12:00)
PROC: 30233N1 Transfusion of Nonautologous Red Blood Cells into Peripheral Vein, Percutaneous Approach (ICD-10-PCS; 2017-10-31)
PROC: CD271ZZ Tomographic (Tomo) Nuclear Medicine Imaging of Gastrointestinal Tract using Technetium 99m (Tc-99m) (ICD-10-PCS; 2017-10-31)
PROC: 0D1 Gastrointestinal System, Bypass (ICD-10-PCS; 2017-11-01)
PROC: 0DB80ZZ Excision of Small Intestine, Open Approach (ICD-10-PCS; 2017-11-01)
PROC: 30233L1 Transfusion of Nonautologous Fresh Plasma into Peripheral Vein, Percutaneous Approach (ICD-10-PCS; 2017-11-01)
PROC: 30233K1 Transfusion of Nonautologous Frozen Plasma into Peripheral Vein, Percutaneous Approach (ICD-10-PCS; 2017-11-01)
PROC: 30233M1 Transfusion of Nonautologous Plasma Cryoprecipitate into Peripheral Vein, Percutaneous Approach (ICD-10-PCS; 2017-11-01)
PROC: 30233R1 Transfusion of Nonautologous Platelets into Peripheral Vein, Percutaneous Approach (ICD-10-PCS; 2017-11-01)
PROC: B41B1ZZ Fluoroscopy of Other Intra-Abdominal Arteries using Low Osmolar Contrast (ICD-10-PCS; 2017-11-01)
PROC: B4141ZZ Fluoroscopy of Superior Mesenteric Artery using Low Osmolar Contrast (ICD-10-PCS; 2017-11-01)
DX: K63.89 Other specified diseases of intestine (principal); K55.9 Vascular disorder of intestine, unspecified; N18.4 Chronic kidney disease, stage 4 (severe); I48.91 Unspecified atrial fibrillation; D68.9 Coagulation defect, unspecified; N17.9 Acute kidney failure, unspecified; J44.9 Chronic obstructive pulmonary disease, unspecified; R71.0 Precipitous drop in hematocrit; K56.7 Ileus, unspecified; R58 Hemorrhage, not elsewhere classified; I25.10 Atherosclerotic heart disease of native coronary artery without angina pectoris; I12.9 Hypertensive chronic kidney disease with stage 1 through stage 4 chronic kidney disease, or unspecified chronic kidney disease; Z88.0 Allergy status to penicillin; Z88.1 Allergy status to other antibiotic agents; Q43.0 Meckel's diverticulum (displaced) (hypertrophic); Z88.8 Allergy status to other drugs, medicaments and biological substances; Z79.899 Other long term (current) drug therapy; Z95.1 Presence of aortocoronary bypass graft
CPT/HCPCS: 36218; 36245; 36415; 36600; 71010; 71020; 75726; 78278; 80047; 80048; 80053; 81001; 82803; 82948; 83735; 84100; 85018; 85025; 85027; 85384; 85610; 85730; 86885; 86900; 86901; 86920; 87070; 87088; 88309; 93005; 94002; 94003; 94668; 94760; 97116; 97162; 97530; 99152; 99153; A4315; A4620; A6213; A6251; A6255; A6257; A6258; A6449; A7000; A9560; C1758; C1769; C1887; C1894; J0131; J0610; J0690; J1580; J1610; J1642; J1644; J1815; J1885; J1940; J1956; J2001; J2212; J2250; J2270; J2405; J3010; J3475; J3480; J3490; J7030; J7120; P9012; P9016; P9035; P9045; P9059; Q9967

== ENCOUNTER 2019-02-13 03:11 | Outpatient (CLI) | payer MEDICARE, BC ==
[~2019-02-13 03:11] MED LIST changes: +LACT1CAP26 PO; -clindamycin-Cleocin 900mg/D5W 50 ML IV ONE; -famotidine 20mg tablet PO ONE; -normal saline 500ml IV soln 500 ML IV SCH; -ringers solution, lacted 1,000 ML IV SCH
== END 2019-02-13 23:59 | disposition home or self-care (01) ==
LOC: DIABETIC 03:11
PROVIDERS: ATTEND Family Medicine
DX: E11.9 Type 2 diabetes mellitus without complications (principal); I10 Essential (primary) hypertension; Z95.1 Presence of aortocoronary bypass graft
CPT/HCPCS: G0108

== ENCOUNTER 2021-05-05 10:03 | Emergency (ER) | payer MEDICARE, BC ==
[~2021-05-05] VITALS: Ht 160 cm; Wt 83.6 kg
[2021-05-05 10:08] VITALS: BP 187/51
--- NOTE | 2021-05-05 10:37 | NUR ---
RELIEVING RN FOR BREAK, PT IS RESTING QUIETLY ON GURNEY, WAITING TO BE EVALUATED BY PROVIDER
[2021-05-05 11:08] LABS: BASOPHILS # (AUTO) 0.1 X10'3 (0-0.2); BASOPHILS % (AUTO) 0.6 % (0-1); EOSINOPHILS # (AUTO) 0.1 X10'3 (0-0.9); EOSINOPHILS % (AUTO) 1.1 % (0-6); HEMATOCRIT 35.4 % (35.0-45.0); HEMOGLOBIN 11.4 g/dl (12.0-16.0); LYMPHOCYTES # (AUTO) 1.6 X10'3 (1.1-4.8); LYMPHOCYTES % (AUTO) 18.5 % (21-51); MEAN CORPUSCULAR HEMOGLOBIN 28.4 PG (27.0-31.0); MEAN CORPUSCULAR HGB CONC 32.3 g/dL (33.0-36.5); MEAN CORPUSCULAR VOLUME 88.2 FL (78-98); MEAN PLATELET VOLUME 9.3 FL (7.4-10.4); MONOCYTES # (AUTO) 0.4 X10'3 (0-0.9); MONOCYTES % (AUTO) 4.5 % (2-12); NEUTROPHILS # (AUTO) 6.7 X10'3 (1.8-7.7); NEUTROPHILS % (AUTO) 75.3 % (42-75); PLATELET COUNT 215 X10'3 (140-440); RED BLOOD COUNT 4.01 X10'6 (4.20-5.60); RED CELL DISTRIBUTION WIDTH 15.3 % (11.5-14.5); WHITE BLOOD COUNT 8.9 X10'3 (4.5-11.0)
[2021-05-05 11:18] LABS: ANION GAP 7 (8-16); BLOOD UREA NITROGEN 33 MG/DL (7-18); BUN/CREATININE RATIO 21.6 (6.6-38.0); CALCIUM 9.3 MG/DL (8.5-10.1); CHLORIDE 108 MMOL/L (99-107); CREATININE 1.53 MG/DL (0.40-0.90); GLUCOSE 137 MG/DL (70-104); MAGNESIUM 2.5 MG/DL (1.5-2.4); POTASSIUM 4.4 MMOL/L (3.5-5.1); SODIUM 142 MMOL/L (135-145); TOTAL CARBON DIOXIDE 26.7 MMOL/L (24-32); eGFR 33 ML/MIN
== END 2021-05-05 12:45 | disposition home or self-care (01) ==
LOC: ER 10:04
DX: M71.21 Synovial cyst of popliteal space [Baker], right knee (principal); I11.0 Hypertensive heart disease with heart failure; E78.00 Pure hypercholesterolemia, unspecified; Z95.0 Presence of cardiac pacemaker; Z88.0 Allergy status to penicillin; Z88.1 Allergy status to other antibiotic agents; Z79.899 Other long term (current) drug therapy
CPT/HCPCS: 36415; 80048; 83735; 85025; 85610; 93971; 99284

== ENCOUNTER 2023-10-16 11:12 | Day surgery (SDC) | payer MEDICARE, BC ==
[2023-10-12 14:29] LABS: BASOPHILS # (AUTO) 0.1 X10'3 (0-0.2); BASOPHILS % (AUTO) 0.8 % (0-1); EOSINOPHILS # (AUTO) 0.2 X10'3 (0-0.9); EOSINOPHILS % (AUTO) 3.2 % (0-6); HEMATOCRIT 29.4 % (35.0-45.0); HEMOGLOBIN 9.5 g/dl (12.0-16.0); LYMPHOCYTES # (AUTO) 2.8 X10'3 (1.1-4.8); LYMPHOCYTES % (AUTO) 35.9 % (21-51); MEAN CORPUSCULAR HEMOGLOBIN 28.1 PG (27.0-31.0); MEAN CORPUSCULAR HGB CONC 32.3 g/dL (33.0-36.5); MEAN CORPUSCULAR VOLUME 86.9 FL (78-98); MEAN PLATELET VOLUME 9.8 FL (7.4-10.4); MONOCYTES # (AUTO) 0.6 X10'3 (0-0.9); MONOCYTES % (AUTO) 7.4 % (2-12); NEUTROPHILS # (AUTO) 4.1 X10'3 (1.8-7.7); NEUTROPHILS % (AUTO) 52.7 % (42-75); PLATELET COUNT 203 X10'3 (140-440); RED BLOOD COUNT 3.39 X10'6 (4.20-5.60); RED CELL DISTRIBUTION WIDTH 14.7 % (11.5-14.5); WHITE BLOOD COUNT 7.8 X10'3 (4.5-11.0)
[2023-10-12 14:47] LABS: APTT 46 SECONDS (22-32); PROTHROMBIN TIME 39.6 SECONDS (9.0-12.0)
[2023-10-12 14:51] LABS: ALBUMIN 3.3 G/DL (3.4-5.0); ANION GAP 7 (8-16); BLOOD UREA NITROGEN 38 MG/DL (7-18); BUN/CREATININE RATIO 18.5 (10.0-20.0); CALCIUM 9.3 MG/DL (8.5-10.1); CHLORIDE 105 MMOL/L (99-107); CREATININE 2.05 MG/DL (0.40-0.90); GLUCOSE 115 MG/DL (70-104); SODIUM 139 MMOL/L (135-145); TOTAL CARBON DIOXIDE 26.9 MMOL/L (24-32); eGFR 23 ML/MIN
[~2023-10-16] VITALS: Ht 162.6 cm; Wt 78.4 kg
[~2023-10-16 11:12] MED LIST changes: +ATOR-2 PO; -ATOR40TA PO; +CALC0.2535 PO; -CALC1TAB PO; +CARV3.1244 PO; -COU4T PO; -FURO-150 PO; +FURO20TA4 PO; -LOSA25TA96 PO; +LOSA50TA64 PO; -MAGN250T2 PO; +NITR0.4T51 SL; -POTA20TA19 PO; +WARF2.5T82 PO
[2023-10-16] MEDS ORDERED: normal saline 1,000 ML IV SCH (11:25)
[2023-10-16] MEDS ORDERED: LORazepam 0.5 MG tablet PO PRN (11:25)
[2023-10-16 11:28] VITALS: BP 142/68; PULSE 69; RESP 16; TEMP 98.2; O2SAT 100
[2023-10-16] MEDS ORDERED: CARV6.2553 PO (11:43)
[2023-10-16 11:54] LABS: INR 2.7 INR; PROTHROMBIN TIME 27.2 SECONDS (9.0-12.0)
[2023-10-16] MEDS ORDERED: AMIO100T4 PO (11:55)
[2023-10-16] MEDS ORDERED: CALC600T14 PO (12:00)
[2023-10-16] MEDS ORDERED: VALA100031 (12:00)
[2023-10-16] MEDS ORDERED: [UNRECOGNIZED DRUG - OTHER] (12:00)
[2023-10-16] MEDS ORDERED: WARFARIN SODIUM PO (12:00)
[2023-10-16] MEDS ORDERED: LIDOcaine 1% (10mg/ml)w/preservative inj. 20ml MDV ONE (12:02)
[2023-10-16] MEDS ORDERED: fentaNYL/PF 50MCG/1 ML 2ML syringe ONE (12:02)
[2023-10-16] MEDS ORDERED: midazolam 1 mg/ML 2ml injection ONE (12:02)
[2023-10-16] MEDS ORDERED: iohexol 350MG/ML 100ml bottle IV ONE (12:02)
[2023-10-16] MEDS ORDERED: iohexol 350 MG/ML 50ML vial IV ONE (12:04)
== END 2023-10-16 12:50 | disposition home or self-care (01) ==
LOC: SSTAY O 11:12
PROVIDERS: ATTEND Student in an Organized Health Care Education/Training Program
DX: I11.0 Hypertensive heart disease with heart failure (principal); Z53.8 Procedure and treatment not carried out for other reasons; I50.32 Chronic diastolic (congestive) heart failure; I48.91 Unspecified atrial fibrillation; I25.10 Atherosclerotic heart disease of native coronary artery without angina pectoris; E78.5 Hyperlipidemia, unspecified; I27.20 Pulmonary hypertension, unspecified; Z95.1 Presence of aortocoronary bypass graft; Z79.899 Other long term (current) drug therapy; Z79.01 Long term (current) use of anticoagulants; Z88.1 Allergy status to other antibiotic agents; Z88.2 Allergy status to sulfonamides
CPT/HCPCS: 36415; 80048; 85025; 85610; 85730; 93005; J1644; J2250; J3010; J7030; C1769; C1894; J3490; Q9967

== ENCOUNTER 2023-10-28 20:54 | Inpatient (IN) | payer MEDICARE, BC ==
[~2023-10-28] VITALS: Ht 160 cm; Wt 75.5 kg
[~2023-10-28 20:54] MED LIST changes: +AMIO100T4 PO; +CALC600T14 PO; -CARV3.1244 PO; +CARV6.2553 PO; -LACT1CAP26 PO; +VALA100031; +WARFARIN SODIUM PO; +[UNRECOGNIZED DRUG - OTHER]
[2023-10-28] MEDS ORDERED: aspirin 81mg tab.chew PO ONE (21:15)
[2023-10-28 21:37] LABS: BASOPHILS % (AUTO) 0.7 % (0-1); EOSINOPHILS # (AUTO) 0.2 X10'3 (0-0.9); EOSINOPHILS % (AUTO) 2.9 % (0-6); HEMATOCRIT 29.1 % (35.0-45.0); HEMOGLOBIN 9.4 g/dl (12.0-16.0); LYMPHOCYTES # (AUTO) 1.9 X10'3 (1.1-4.8); LYMPHOCYTES % (AUTO) 26.5 % (21-51); MEAN CORPUSCULAR HEMOGLOBIN 28.3 PG (27.0-31.0); MEAN CORPUSCULAR HGB CONC 32.2 g/dL (33.0-36.5); MEAN PLATELET VOLUME 10.8 FL (7.4-10.4); MONOCYTES # (AUTO) 0.5 X10'3 (0-0.9); NEUTROPHILS # (AUTO) 4.6 X10'3 (1.8-7.7); NEUTROPHILS % (AUTO) 62.9 % (42-75); PLATELET COUNT 196 X10'3 (140-440); RED BLOOD COUNT 3.31 X10'6 (4.20-5.60); RED CELL DISTRIBUTION WIDTH 15.8 % (11.5-14.5); WHITE BLOOD COUNT 7.3 X10'3 (4.5-11.0)
[2023-10-28 21:55] LABS: APTT 35 SECONDS (22-32); INR 2.1 INR; PROTHROMBIN TIME 21.2 SECONDS (9.0-12.0)
[2023-10-28 22:00] LABS: ALANINE AMINOTRANSFERASE 56 U/L (12-78); ALBUMIN 3.5 G/DL (3.4-5.0); ALBUMIN/GLOBULIN RATIO 0.9 (1.1-1.5); ALKALINE PHOSPHATASE 72 IU/L (46-116); ANION GAP 8 (8-16); ASPARTATE AMINO TRANSFERASE 60 U/L (10-37); BILIRUBIN,TOTAL 0.4 MG/DL (0.1-1.0); BLOOD UREA NITROGEN 41 MG/DL (7-18); BUN/CREATININE RATIO 20.2 (10.0-20.0); CALCIUM 8.7 MG/DL (8.5-10.1); CHLORIDE 106 MMOL/L (99-107); CREATININE 2.03 MG/DL (0.40-0.90); GLUCOSE 153 MG/DL (70-104); POTASSIUM 3.7 MMOL/L (3.5-5.1); SODIUM 141 MMOL/L (135-145); TOTAL CARBON DIOXIDE 27.4 MMOL/L (24-32); TOTAL PROTEIN 7.5 G/DL (6.4-8.2); eCRCL 19 ML/MIN; eGFR 24 ML/MIN
[2023-10-28 22:06] LABS: PRO BRAIN NATRIURETIC PEPTIDE 8716 PG/ML (0-450)
[2023-10-29] MEDS ORDERED: magnesium Cl slow-release 64mg tablet PO PRN (00:10)
[2023-10-29] MEDS ORDERED: potassium Cl 40MEQ/1/2NS 520ml 520 ML IV PRN (00:10)
[2023-10-29] MEDS ORDERED: magnesium 2GM in 50ml NS 50 ML IV PRN (00:10)
[2023-10-29] MEDS ORDERED: magnesium hydroxide 30ml (MOM) UD suspension PO PRN (00:10)
[2023-10-29] MEDS ORDERED: mag hydrox/Alum hydrox/simeth 30ml oral suspension PO PRN (00:10)
[2023-10-29] MEDS ORDERED: acetaminophen 325mg tablet PO PRN (00:10)
[2023-10-29] MEDS ORDERED: magnesium 4gm in 100ml NS 100 ML IV PRN (00:10)
[2023-10-29] MEDS ORDERED: ondansetron/PF 4mg/2ml inj IV PRN (00:10)
[2023-10-29] MEDS ORDERED: potassium Cl 20 mEq SR tablet PO PRN ×2 (00:10)
[2023-10-29] MEDS ORDERED: azithromycin 250mg tablet PO ONE (00:15)
[2023-10-29] MEDS ORDERED: nitroGLYCERIN 0.4mg SUBLingual tab SL PRN ×2 (00:15→08:50)
[2023-10-29] MEDS ORDERED: LORazepam 1 MG tablet PO ONE (05:10)
[2023-10-29] MEDS ORDERED: acetaminophen 325mg tablet PO ONE (05:10)
[2023-10-29] MEDS ORDERED: calcitriol 0.25mcg capsule PO SCH (08:00)
[2023-10-29] MEDS ORDERED: amiodarone 100mg tablet PO SCH (08:00)
[2023-10-29] MEDS ORDERED: furosemide 20MG tablet PO SCH (08:00)
[2023-10-29] MEDS ORDERED: atorvastatin 20mg tablet PO SCH (08:00)
[2023-10-29] MEDS ORDERED: calcium carbonate 500mg tablet PO SCH (08:00)
[2023-10-29] MEDS ORDERED: docusate sod 100mg capsule PO SCH (08:00)
[2023-10-29] MEDS ORDERED: carvedilol 6.25mg tablet PO SCH (08:00)
[2023-10-29] MEDS ORDERED: losartan 50mg tablet PO SCH (08:00)
[2023-10-29] MEDS ORDERED: K and/or MAG REPLACEMENT MC SCH (08:00)
[2023-10-29] MEDS ORDERED: azithromycin 250mg tablet PO SCH (08:00)
[2023-10-29] MEDS ORDERED: PERFLUTREN PROTEIN-A MICROSPHR (Optison) 0.22 MG/ML 3ML VIAL IV ONE (08:00)
[2023-10-29 08:39] LABS: INR 2.1 INR; PROTHROMBIN TIME 21.8 SECONDS (9.0-12.0)
[2023-10-29] MEDS ORDERED: metoprolol tartrate 1mg/ml inj IV PRN (08:50)
[2023-10-29] MEDS ORDERED: aminophylline 250mg/10ml inj. IV PRN (08:50)
[2023-10-29] MEDS ORDERED: regadenoson 0.4mg/5ml syringe IV PRN (08:50)
[2023-10-29 10:12] VITALS: RESP 24; O2SAT 96
[2023-10-29 11:40] VITALS: BP 127/37; PULSE 57; RESP 14; TEMP 97.7; O2SAT 98
[2023-10-29] MEDS ORDERED: AZI25OT PO (11:42)
[2023-10-29] MEDS ORDERED: ondansetron 4mg rapidly disintigrating tab PO PRN (12:43)
[2023-10-29] MEDS ORDERED: warfarin 2.5mg tablet PO ONE (21:00)
== END 2023-10-29 13:20 | disposition home or self-care (01) | DRG 291 ==
LOC: ER 20:55 → ED HOLD 10-29 00:11 → PCU 3S 10-29 08:47
PROVIDERS: ADMIT Internal Medicine; ATTEND Internal Medicine
DX: I13.0 Hypertensive heart and chronic kidney disease with heart failure and stage 1 through stage 4 chronic kidney disease, or unspecified chronic kidney disease (principal); I50.33 Acute on chronic diastolic (congestive) heart failure; I25.10 Atherosclerotic heart disease of native coronary artery without angina pectoris; E78.00 Pure hypercholesterolemia, unspecified; N18.9 Chronic kidney disease, unspecified; Z20.822 Contact with and (suspected) exposure to COVID-19; R07.9 Chest pain, unspecified; J47.9 Bronchiectasis, uncomplicated; I48.91 Unspecified atrial fibrillation; Z79.01 Long term (current) use of anticoagulants; Z95.1 Presence of aortocoronary bypass graft; Z88.0 Allergy status to penicillin; Z88.1 Allergy status to other antibiotic agents; Z79.899 Other long term (current) drug therapy
CPT/HCPCS: 36415; 71045; 80053; 83735; 83880; 84132; 84484; 85025; 85610; 85730; 87502; 87503; 87811; 93308; 99285